=== PATIENT | female | born 1955 | race Caucasian/White ===

== ENCOUNTER → 2016-06-08 | Outpatient (CLI) | payer OTHER | LOC: EXRD 06-07 13:30 | DX: M81.8 Other osteoporosis without current pathological fracture (principal); E55.9 Vitamin D deficiency, unspecified | CPT/HCPCS: 77080 ==

== ENCOUNTER → 2016-06-22 | Outpatient (CLI) | payer OTHER | LOC: KOH-I 10:55 | DX: M25.552 Pain in left hip (principal) | CPT/HCPCS: 73502 ==

== ENCOUNTER 2021-01-28 00:53 | Emergency (ER) | payer BC ==
[2021-01-28 01:34] LABS: HEMOGLOBIN 12.2 gm/dl (12.3-15.3); RED BLOOD COUNT 4.03 M/UL (4.00-5.10); WHITE BLOOD COUNT 6.1 K/UL (4.5-11.0)
[2021-01-28 02:30] LABS: BUN/CREATININE RATIO 22 (0-10)
== END 2021-01-28 05:10 | disposition home or self-care (01) ==
LOC: ER1 00:53
PROVIDERS: Physician Assistant
DX: R07.89 Other chest pain (principal); Z88.0 Allergy status to penicillin; Z88.2 Allergy status to sulfonamides; Z90.49 Acquired absence of other specified parts of digestive tract
CPT/HCPCS: 80053; 82550; 82553; 83690; 83874; 83880; 84484; 85025; 85610; 85730; 93005; 99285; Q9967

== ENCOUNTER → 2021-03-03 | Outpatient (CLI) | payer BC | LOC: KOH-I 12:56 | DX: M54.2 Cervicalgia (principal); M54.50 Low back pain, unspecified; M47.812 Spondylosis without myelopathy or radiculopathy, cervical region; M47.816 Spondylosis without myelopathy or radiculopathy, lumbar region | CPT/HCPCS: 72040; 72100 ==